=== PATIENT | female | born 1960 | race Caucasian/White ===

== ENCOUNTER 2018-12-10 13:45 | Emergency (ER) | payer MEDICAID ==
--- NOTE | 2018-12-10 14:28 | EDM.PDOC ---
ED HPI GENERAL MEDICAL PROBLEM - General Chief Complaint: Neurological Problem Stated Complaint: DIZZINESS/WEAKNESS - History of Present Illness INITIAL COMMENTS - FREE TEXT/NARRATIVE: Patient is a 58 year old female who appears older than stated age with past medical history positive for insulin dependent diabetes, cardiovascular disease with quadruple bypass, nephrectomy, hypothyroidism and Dizziness Sitting in a chair - started in legs, "wilted" ate a candy bar. Kept having to shake her awake. The appointment said that she had some shaking Patient has not had insulin in the past few weeks because she moved here 2 months ago and ran out of insulin. lantus Bypass 2017 Quad Nephrectomy Carotid enterectomy Hypothyroidism Acted similar to how she had her seizures - Related Data Allergies Allergy/AdvReac Type Severity Reaction Status Date / Time Influenza Virus Vaccines Allergy Cannot Verified 12/10/18 14:19 Remember morphine Allergy Cannot Verified 12/10/18 14:19 Remember pneumococcal vaccine Allergy Cannot Verified 12/10/18 14:19 [From Pneumovax 23] Remember pravastatin [From Pravachol] Allergy Cannot Verified 12/10/18 14:19 Remember tolterodine [From Detrol] Allergy Cannot Verified 12/10/18 14:19 Remember Home Meds: Home Meds Aspirin [Halfprin] 81 mg PO DAILY 12/10/18 [History] Azelastine/Fluticasone [Dymista Nasal [place]] 2 spray NS BID 12/10/18 [History] Budesonide/Formoterol Fumarate [Symbicort 80-4.5 MCG] 2 puff IH BID 12/10/18 [ History] Carvedilol [Coreg] 3.125 mg PO BID 12/10/18 [History] Cholecalciferol (Vitamin D3) [Vitamin D3] 1,000 unit PO DAILY 12/10/18 [History] Cpap 12/10/18 [History] Empagliflozin [Jardiance] 25 mg PO DAILY 12/10/18 [History] Escitalopram [Lexapro] 10 mg PO DAILY 12/10/18 [History] Fexofenadine [Sylvia] 180 mg PO DAILY 12/10/18 [History] Fluticasone Propionate [Flonase] 2 spray NS ASDIRECTED 12/10/18 [History] Furosemide [Lasix] 40 mg PO DAILY 12/10/18 [History] Gabapentin [Neurontin] 600 mg PO BID 12/10/18 [History] Insulin Glargine,Hum.Rec.Anlog [Lantus Solostar] 24 unit SQ QAM 12/10/18 [ History] Levothyroxine. 1 tab PO DAILY 12/10/18 [History] Losartan [Cozaar] 50 mg PO BID 12/10/18 [History] Lutein/Minerals/Vit A,C & E [Ocuvite] 1 tab PO DAILY 12/10/18 [History] Magnesium Oxide [Magnesium] 400 mg PO DAILY 12/10/18 [History] Mometasone/Formoterol [Dulera 100 Mcg/5 Mcg Inhaler] 2 puff IH DAILY 12/10/18 [ History] Omeprazole 20 mg PO QAM 12/10/18 [History] Polyethylene Glycol 3350 [Gavilax] 8.5 gm PO Q3D 12/10/18 [History] amLODIPine [Norvasc] 5 mg PO DAILY 12/10/18 [History] atorvaSTATin Calcium [Atorvastatin Calcium] 80 mg PO BEDTIME 12/10/18 [History] levETIRAcetam [Levetiracetam] 750 mg PO BID 12/10/18 [History] metFORMIN HCl [Metformin HCl] 1,000 mg PO BID 12/10/18 [History] Past Medical History HEENT History: Reports: Cataract, Impaired Vision Cardiovascular History: Reports: High Cholesterol, Hypertension Respiratory History: Reports: COPD, Intubation, Previous, Sleep Apnea Other Respiratory History: wears CPAP. USes 2l oxygen with naps and at bedtime Genitourinary History: Reports: Other (See Below) Other Genitourinary History: left kidney removed August 2018 TEXTILE EXAMINER History: Reports: Other (See Below) Other TEXTILE EXAMINER History: Hystertomy 2003. 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 Neurological History: Reports: Other (See Below) Other Neuro History: CVA 2017 Psychiatric History: Reports: Addiction, Anxiety, Depression Endocrine/Metabolic History: Reports: Diabetes, Type II, Hypothyroidism Oncologic (Cancer) History: Reports: Other (See Below) Other Oncologic History: skin cancer - Past Surgical History HEENT Surgical History: Reports: Eye Surgery Cardiovascular Surgical History: Reports: Coronary Artery Bypass, Other (See Below) Other Cardiovascular Surgeries/Procedures: 4 vessel 2016 GI Surgical History: Reports: Appendectomy Social & Family History - Tobacco Use Smoking Status *Q: Current Every Day Smoker Years of Tobacco use: 49 Packs/Tins Daily: 1 - Caffeine Use Caffeine Use: Reports: Soda, Tea - Recreational Drug Use Recreational Drug Use: No Course - Vital Signs Last Recorded V/S: Last Vital Signs Temp 97.9 F 12/10/18 14:01 Pulse 44 L 12/10/18 14:01 Resp 17 12/10/18 14:01 BP 107/52 L 12/10/18 14:01 Pulse Ox 95 12/10/18 14:01 - Orders/Labs/Meds Orders: Active Orders 24 hr Category Date Time Status Orthostatic Vital Signs [RC] ASDIRECTED Care 12/10/18 14:16 Active Chest 1V Frontal [CR] Stat Exams 12/10/18 14:29 Ordered CBC WITH AUTO DIFF [HEME] Stat Lab 12/10/18 14:29 Ordered CKMB [CHEM] Stat Lab 12/10/18 14:37 Ordered COMPREHENSIVE METABOLIC PN,CMP [CHEM] Stat Lab 12/10/18 14:29 Ordered CPK [CREATINE KINASE,CK] [CHEM] Stat Lab 12/10/18 14:37 Ordered GLYCOSYLATED HEMOGLOBIN,HGBA1C [CHEM] Stat Lab 12/10/18 14:31 Ordered INR,PT,PROTHROMBIN TIME [COAG] Stat Lab 12/10/18 14:29 Ordered KETONES,BLOOD [CHEM] Stat Lab 12/10/18 14:30 Ordered MAGNESIUM [CHEM] Stat Lab 12/10/18 14:29 Ordered OSMOLALITY,SERUM [CHEM] Stat Lab 12/10/18 14:29 Ordered PRO B-TYPE NATRIUR PEPT,BNPPRO [CHEM] Stat Lab 12/10/18 14:30 Ordered PTT,PARTIAL THROMBOPLSTIN TIME [COAG] Stat Lab 12/10/18 14:29 Ordered TROPONIN I [CHEM] Stat Lab 12/10/18 14:37 Ordered TSH [CHEM] Stat Lab 12/10/18 14:29 Ordered URINALYSIS W/MICROSCOPIC [UA W/MICROSCOPIC] [URIN] Stat Lab 12/10/18 14:30 Ordered Sodium Chloride 0.9% [Normal Saline] 1,000 ml Med 12/10/18 14:30 Active IV ASDIRECTED Sodium Chloride 0.9% [Normal Saline] 1,000 ml Med 12/10/18 14:30 Active IV ASDIRECTED Medication Orders Sodium Chloride (Normal Saline) 1,000 mls @ 999 mls/hr IV ASDIRECTED RAMSEY Sodium Chloride (Normal Saline) 1,000 mls @ 999 mls/hr IV ASDIRECTED RAMSEY Labs: Laboratory Tests 12/10/18 Range/Units 14:01 POC Glucose 254 H (70-105) mg/dL Meds: Medications Generic Name Dose Route Start Last Admin Trade Name Freq PRN Reason Stop Dose Admin Sodium Chloride 1,000 mls @ 999 mls/hr 12/10/18 14:30 Normal Saline IV ASDIRECTED RAMSEY Sodium Chloride 1,000 mls @ 999 mls/hr 12/10/18 14:30 Normal Saline IV ASDIRECTED RAMSEY Departure - Discharge Information Referrals: PCP,Not In Area [Primary Care Provider] - Forms: ED Department Discharge
[2018-12-10] MEDS ORDERED: Sodium Chloride 0.9% 1,000 ML IV SCH (14:30)
--- NOTE | 2018-12-10 14:35 | EDM.PDOC ---
<Nas Schaefer - Last Filed: 12/10/18 14:58> ED HPI GENERAL MEDICAL PROBLEM - General Chief Complaint: Neurological Problem Stated Complaint: DIZZINESS/WEAKNESS Time Seen by Provider: 12/10/18 14:28 Source of Information: Reports: Patient, Family History Limitations: Reports: No Limitations - History of Present Illness INITIAL COMMENTS - FREE TEXT/NARRATIVE: Patient is a 58 year old female with past medical history positive for insulin dependent diabetes, CABG, nephrectomy, hypothyroidism, CVA with residual left sided deficits and current smoker who presented today for "wilting." The patient is a poor historian, but is accompanied by her daughter and mother. The patient recently moved here from [place] and has been without insulin for a few weeks due to lack of insurance coverage. She does report that she is taking her blood pressure medication. Today, the patient complains of "wilting," which happened this morning while she was sitting in a chair. She states that the sensation began in her legs. The event was witnessed by family. She was offered a few bite of a candy bar, and the family reported that she "went in and out," and had to keep her awake. At the appointment they also noted that she had some shaking. The patient does have a history of seizures following her stroke, and the family is concerned today because they feel she is presenting similar to how she presented following her stroke. Onset: Today Onset Date: 12/10/18 Duration: Hour(s): - Related Data Allergies Allergy/AdvReac Type Severity Reaction Status Date / Time Influenza Virus Vaccines Allergy Cannot Verified 12/10/18 14:19 Remember morphine Allergy Cannot Verified 12/10/18 14:19 Remember pneumococcal vaccine Allergy Cannot Verified 12/10/18 14:19 [From Pneumovax 23] Remember pravastatin [From Pravachol] Allergy Cannot Verified 12/10/18 14:19 Remember tolterodine [From Detrol] Allergy Cannot Verified 12/10/18 14:19 Remember Home Meds: Home Meds Albuterol [Proventil Neb Soln] 0.63 mg NEB Q4HRRT PRN 12/10/18 [History] Aspirin [Halfprin] 81 mg PO DAILY 12/10/18 [History] Azelastine/Fluticasone [Dymista Nasal [place]] 2 spray NS BID 12/10/18 [History] Budesonide/Formoterol Fumarate [Symbicort 80-4.5 MCG] 2 puff IH BID 12/10/18 [ History] Carvedilol [Coreg] 3.125 mg PO BID 12/10/18 [History] Cholecalciferol (Vitamin D3) [Vitamin D3] 1,000 unit PO DAILY 12/10/18 [History] Empagliflozin [Jardiance] 25 mg PO DAILY 12/10/18 [History] Escitalopram [Lexapro] 10 mg PO DAILY 12/10/18 [History] Fexofenadine [Sylvia] 180 mg PO DAILY 12/10/18 [History] Fluticasone Propionate [Flonase] 2 spray NS ASDIRECTED 12/10/18 [History] Furosemide [Lasix] 40 mg PO DAILY 12/10/18 [History] Gabapentin [Neurontin] 600 mg PO BID 12/10/18 [History] Insulin Glarg,Human.Rec.Analog [Lantus Solostar] 24 units SUBCUT DAILY #1 pen [Rx] Insulin Glargine,Hum.Rec.Anlog [Lantus Solostar] 24 unit SQ QAM 12/10/18 [ History] Levothyroxine 200 mcg PO ACBREAKFAST #30 tab 12/10/18 [Rx] Levothyroxine. 1 tab PO DAILY 12/10/18 [History] Losartan [Cozaar] 50 mg PO BID 12/10/18 [History] Lutein/Minerals/Vit A,C & E [Ocuvite] 1 tab PO DAILY 12/10/18 [History] Magnesium Oxide [Magnesium] 400 mg PO DAILY 12/10/18 [History] Mometasone/Formoterol [Dulera 100 Mcg/5 Mcg Inhaler] 2 puff IH DAILY 12/10/18 [ History] Omeprazole 20 mg PO QAM 12/10/18 [History] Polyethylene Glycol 3350 [Gavilax] 8.5 gm PO Q3D 12/10/18 [History] amLODIPine [Norvasc] 5 mg PO DAILY 12/10/18 [History] atorvaSTATin Calcium [Atorvastatin Calcium] 80 mg PO BEDTIME 12/10/18 [History] levETIRAcetam [Levetiracetam] 750 mg PO BID 12/10/18 [History] metFORMIN HCl [Metformin HCl] 1,000 mg PO BID 12/10/18 [History] ED ROS GENERAL - Review of Systems Review Of Systems: See Below Constitutional: Reports: Fatigue, Weight Loss (Shrunk from a size large to a medium ) HEENT: Reports: Glasses, Other (Had vision changes with episode today) Respiratory: Reports: No Symptoms Cardiovascular: Reports: No Symptoms GI/Abdominal: Reports: No Symptoms : Denies: Dysuria, Frequency Musculoskeletal: Reports: No Symptoms Skin: Reports: No Symptoms, Dryness Neurological: Reports: Dizziness ED EXAM, NEURO - Physical Exam Exam: See Below General Appearance: Alert, WD/WN, No Apparent Distress Nose: Normal Inspection Throat/Mouth: Normal Inspection Neck: Normal Inspection Respiratory/Chest: No Respiratory Distress, No Accessory Muscle Use, Crackles ( Lower lung base) Cardiovascular: Normal Peripheral Pulses, Regular Rate, Rhythm, No Edema, No Murmur, No Rub GI/Abdominal: Normal Bowel Sounds, Soft, No Distention Neurological: Alert, Normal Mood/Affect Back Exam: Normal Inspection Extremities: Normal Inspection Psychiatric: Normal Affect, Normal Mood Skin Exam: Warm, Dry, Intact Course - Vital Signs Last Recorded V/S: Last Vital Signs Temp 36.6 C 12/10/18 14:01 Pulse 44 L 12/10/18 14:01 Resp 17 12/10/18 14:01 BP 111/55 L 12/10/18 16:08 Pulse Ox 95 12/10/18 14:01 Orthostatic Blood Pressure [ 82/66 Sitting] Orthostatic Blood Pressure [ 97/49 Supine] - Orders/Labs/Meds Orders: Active Orders 24 hr Category Date Time Status Orthostatic Vital Signs [RC] ASDIRECTED Care 12/10/18 14:16 Active Urinary Catheter Insertion [Insert Urinary Catheter] [ Care 12/10/18 15:45 Ordered OM.PC] Q24H Consult to Case Management/Securities Supervisor [CONS] Cons 12/10/18 16:30 Active Routine Sodium Chloride 0.9% [Normal Saline] 1,000 ml Med 12/10/18 14:30 Active IV ASDIRECTED Medication Orders Sodium Chloride (Normal Saline) 1,000 mls @ 999 mls/hr IV ASDIRECTED RAMSEY Last Admin: 12/10/18 14:58 Dose: 999 mls/hr Labs: Laboratory Tests 10/30/19 10/30/19 10/30/19 Range/Units 14:01 14:55 14:55 WBC 6.90 (3.98-10.04) K/mm3 RBC 5.67 H (3.98-5.22) M/mm3 Hgb 16.2 H (11.2-15.7) gm/dl Hct 48.3 H (34.1-44.9) % MCV 85.2 (79.4-94.8) fl MCH 28.6 (25.6-32.2) pg MCHC 33.5 (32.2-35.5) g/dl RDW Std Deviation 47.0 H (36.4-46.3) fL Plt Count 215 (182-369) K/mm3 MPV 11.0 (9.4-12.3) fl Neut % (Auto) 62.6 (34.0-71.1) % Lymph % (Auto) 24.3 (19.3-51.7) % [place] % (Auto) 8.3 (4.7-12.5) % Eos % (Auto) 4.2 (0.7-5.8) Baso % (Auto) 0.6 (0.1-1.2) % Neut # (Auto) 4.32 (1.56-6.13) K/mm3 Lymph # (Auto) 1.68 (1.18-3.74) K/mm3 [place] # (Auto) 0.57 H (0.24-0.36) K/mm3 Eos # (Auto) 0.29 (0.04-0.36) K/mm3 Baso # (Auto) 0.04 (0.01-0.08) K/mm3 PT 10.9 (9.7-12.0) SECONDS INR 1.00 APTT 22 (22-31) SECONDS Sodium (136-145) mEq/L Potassium (3.5-5.1) mEq/L Chloride (98-107) mEq/L Carbon Dioxide (21-32) mEq/L Anion Gap (5-15) BUN (7-18) mg/dL Creatinine (0.55-1.02) mg/dL Est Cr Clr Drug Dosing mL/min Estimated GFR (MDRD) (>60) mL/min BUN/Creatinine Ratio (14-18) Glucose (74-106) mg/dL POC Glucose 254 H (70-105) mg/dL Hemoglobin A1c (4.50-6.20) % Serum Osmolality (280-300) mosm/kg Calcium (8.5-10.1) mg/dL Magnesium (1.8-2.4) mg/dl Total Bilirubin (0.2-1.0) mg/dL AST (15-37) U/L ALT (14-59) U/L Alkaline Phosphatase (46-116) U/L Creatine Kinase (26-192) U/L CK-MB (CK-2) (0-3.6) ng/ml Troponin I (0.00-0.056) ng/mL NT-Pro-B Natriuret Pep (0-125) pg/mL Total Protein (6.4-8.2) g/dl Albumin (3.4-5.0) g/dl Globulin gm/dL Albumin/Globulin Ratio (1-2) TSH 3rd Generation (0.358-3.74) uIU/mL Urine Color (Yellow) Urine Appearance (Clear) Urine pH (5.0-8.0) Ur Specific [place] (1.005-1.030) Urine Protein (Negative) Urine Glucose (UA) (Negative) Urine Ketones (Negative) Urine Occult Blood (Negative) Urine Nitrite (Negative) Urine Bilirubin (Negative) Urine Urobilinogen (0.2-1.0) Ur Leukocyte Esterase (Negative) Urine RBC (0-5) /hpf Urine WBC (0-5) /hpf Ur Squamous Epith Cells (0-5) /hpf Urine Bacteria (FEW) /hpf Urine Mucus (FEW) /hpf Ketones (0.0-0.3) mM 12/10/18 12/10/18 12/10/18 Range/Units 14:55 14:55 14:55 WBC (3.98-10.04) K/mm3 RBC (3.98-5.22) M/mm3 Hgb (11.2-15.7) gm/dl Hct (34.1-44.9) % MCV (79.4-94.8) fl MCH (25.6-32.2) pg MCHC (32.2-35.5) g/dl RDW Std Deviation (36.4-46.3) fL Plt Count (182-369) K/mm3 MPV (9.4-12.3) fl Neut % (Auto) (34.0-71.1) % Lymph % (Auto) (19.3-51.7) % [place] % (Auto) (4.7-12.5) % Eos % (Auto) (0.7-5.8) Baso % (Auto) (0.1-1.2) % Neut # (Auto) (1.56-6.13) K/mm3 Lymph # (Auto) (1.18-3.74) K/mm3 [place] # (Auto) (0.24-0.36) K/mm3 Eos # (Auto) (0.04-0.36) K/mm3 Baso # (Auto) (0.01-0.08) K/mm3 PT (9.7-12.0) SECONDS INR APTT (22-31) SECONDS Sodium 142 (136-145) mEq/L Potassium 4.3 (3.5-5.1) mEq/L Chloride 101 (98-107) mEq/L Carbon Dioxide 30 (21-32) mEq/L Anion Gap 15.3 H (5-15) BUN 25 H (7-18) mg/dL Creatinine 1.3 H (0.55-1.02) mg/dL Est Cr Clr Drug Dosing 36.40 mL/min Estimated GFR (MDRD) 42 (>60) mL/min BUN/Creatinine Ratio 19.2 H (14-18) Glucose 189 H (74-106) mg/dL POC Glucose (70-105) mg/dL Hemoglobin A1c (4.50-6.20) % Serum Osmolality 312 H (280-300) mosm/kg Calcium 9.9 (8.5-10.1) mg/dL Magnesium 2.2 (1.8-2.4) mg/dl Total Bilirubin 0.7 (0.2-1.0) mg/dL AST 14 L (15-37) U/L ALT 31 (14-59) U/L Alkaline Phosphatase 116 (46-116) U/L Creatine Kinase (26-192) U/L CK-MB (CK-2) (0-3.6) ng/ml Troponin I (0.00-0.056) ng/mL NT-Pro-B Natriuret Pep 454 H (0-125) pg/mL Total Protein 8.1 (6.4-8.2) g/dl Albumin 4.6 (3.4-5.0) g/dl Globulin 3.5 gm/dL Albumin/Globulin Ratio 1.3 (1-2) TSH 3rd Generation 9.373 H (0.358-3.74) uIU/mL Urine Color (Yellow) Urine Appearance (Clear) Urine pH (5.0-8.0) Ur Specific [place] (1.005-1.030) Urine Protein (Negative) Urine Glucose (UA) (Negative) Urine Ketones (Negative) Urine Occult Blood (Negative) Urine Nitrite (Negative) Urine Bilirubin (Negative) Urine Urobilinogen (0.2-1.0) Ur Leukocyte Esterase (Negative) Urine RBC (0-5) /hpf Urine WBC (0-5) /hpf Ur Squamous Epith Cells (0-5) /hpf Urine Bacteria (FEW) /hpf Urine Mucus (FEW) /hpf Ketones 0.21 (0.0-0.3) mM 12/10/18 12/10/18 12/10/18 Range/Units 14:55 14:55 15:30 WBC (3.98-10.04) K/mm3 RBC (3.98-5.22) M/mm3 Hgb (11.2-15.7) gm/dl Hct (34.1-44.9) % MCV (79.4-94.8) fl MCH (25.6-32.2) pg MCHC (32.2-35.5) g/dl RDW Std Deviation (36.4-46.3) fL Plt Count (182-369) K/mm3 MPV (9.4-12.3) fl Neut % (Auto) (34.0-71.1) % Lymph % (Auto) (19.3-51.7) % [place] % (Auto) (4.7-12.5) % Eos % (Auto) (0.7-5.8) Baso % (Auto) (0.1-1.2) % Neut # (Auto) (1.56-6.13) K/mm3 Lymph # (Auto) (1.18-3.74) K/mm3 [place] # (Auto) (0.24-0.36) K/mm3 Eos # (Auto) (0.04-0.36) K/mm3 Baso # (Auto) (0.01-0.08) K/mm3 PT (9.7-12.0) SECONDS INR APTT (22-31) SECONDS Sodium (136-145) mEq/L Potassium (3.5-5.1) mEq/L Chloride (98-107) mEq/L Carbon Dioxide (21-32) mEq/L Anion Gap (5-15) BUN (7-18) mg/dL Creatinine (0.55-1.02) mg/dL Est Cr Clr Drug Dosing mL/min Estimated GFR (MDRD) (>60) mL/min BUN/Creatinine Ratio (14-18) Glucose (74-106) mg/dL POC Glucose (70-105) mg/dL Hemoglobin A1c 7.00 H (4.50-6.20) % Serum Osmolality (280-300) mosm/kg Calcium (8.5-10.1) mg/dL Magnesium (1.8-2.4) mg/dl Total Bilirubin (0.2-1.0) mg/dL AST (15-37) U/L ALT (14-59) U/L Alkaline Phosphatase (46-116) U/L Creatine Kinase 37 (26-192) U/L CK-MB (CK-2) 0.9 (0-3.6) ng/ml Troponin I < 0.017 (0.00-0.056) ng/mL NT-Pro-B Natriuret Pep (0-125) pg/mL Total Protein (6.4-8.2) g/dl Albumin (3.4-5.0) g/dl Globulin gm/dL Albumin/Globulin Ratio (1-2) TSH 3rd Generation (0.358-3.74) uIU/mL Urine Color Yellow (Yellow) Urine Appearance Clear (Clear) Urine pH 5.0 (5.0-8.0) Ur Specific [place] 1.010 (1.005-1.030) Urine Protein Negative (Negative) Urine Glucose (UA) 2+ H (Negative) Urine Ketones Negative (Negative) Urine Occult Blood Negative (Negative) Urine Nitrite Negative (Negative) Urine Bilirubin Negative (Negative) Urine Urobilinogen 0.2 (0.2-1.0) Ur Leukocyte Esterase Negative (Negative) Urine RBC 0-5 (0-5) /hpf Urine WBC 0-5 (0-5) /hpf Ur Squamous Epith Cells 0-5 (0-5) /hpf Urine Bacteria Few (FEW) /hpf Urine Mucus Few (FEW) /hpf Ketones (0.0-0.3) mM Meds: Medications Generic Name Dose Route Start Last Admin Trade Name Luiza PRN Reason Stop Dose Admin Sodium Chloride 1,000 mls @ 999 mls/hr 12/10/18 14:30 12/10/18 14:58 Normal Saline IV 999 mls/hr ASDIRECTED RAMSEY Administration Discontinued Medications Generic Name Dose Route Start Last Admin Trade Name Freq PRN Reason Stop Dose Admin Sodium Chloride 1,000 mls @ 999 mls/hr 12/10/18 14:30 Normal Saline IV ASDIRECTED RAMSEY Departure - Departure Disposition: Home, Self-Care 01 Clinical Impression: Hypothyroidism associated with surgical procedure, Mild congestive heart failure, Uncontrolled type 2 diabetes mellitus, Orthostatic hypotension, Dehydration, moderate - Discharge Information Prescriptions: Insulin Glarg,Human.Rec.Analog [Lantus Solostar] 24 units SUBCUT DAILY #1 pen Levothyroxine 200 mcg PO ACBREAKFAST #30 tab Referrals: PCP,Not In Area [Primary Care Provider] - Forms: ED Department Discharge Additional Instructions: Evaluation in the emergency room today in regards to fainting or syncopal event that occurred while seated earlier today. His occurred because heart rate is very low which is secondary to some of your medications and also due to being hypothyroid. Your blood pressure dropped while seated today which caused lack of blood supply to your brain and you to pass out with some seizure-like activity which we call reperfusion abnormalities. By history alone it does not appear that you suffered any seizure. Her blood pressure upon arrival in the ED was found to be extremely low. By with your low heart rate cause you to pass out today. The reason for the low blood pressure secondary to orthostatic hypotension which is due to low blood volume due to being dehydrated from not taking her insulin for the last 2 weeks. This is caused her blood sugars to be elevated which in turn caused her to become volume depleted or moderately dehydrated. No treatment was a liter of normal saline which returned her blood pressure to normal values with very little change upon standing. Suggest placing your Norvasc /amlodipine on hold for 2 days to allow your blood pressure to come back up. The other thing we identified in your lab work was hypothyroidism with your TSH value at 9.37. It should be to when you are on medication. Therefore IV increase her medication dosage 2.00 mg of levothyroxine replacement once daily. This will have to be checked in 6-8 weeks time to make sure that you are on the correct dosage. Hypothyroidism has an effect on lowering your heart rate and weakening your heart. Continue all other medications as prescribed. - My Orders Last 24 Hours: My Active Orders 12/10/18 14:16 Orthostatic Vital Signs [RC] ASDIRECTED 12/10/18 14:30 Sodium Chloride 0.9% [Normal Saline] 1,000 ml IV ASDIRECTED 12/10/18 15:45 Urinary Catheter Insertion [Insert Urinary Catheter] [OM.PC] Q24H 12/10/18 16:30 Consult to Case Management/Securities Supervisor [CONS] Routine - Assessment/Plan Last 24 Hours: My Active Orders 12/10/18 14:16 Orthostatic Vital Signs [RC] ASDIRECTED 12/10/18 14:30 Sodium Chloride 0.9% [Normal Saline] 1,000 ml IV ASDIRECTED 12/10/18 15:45 Urinary Catheter Insertion [Insert Urinary Catheter] [OM.PC] Q24H 12/10/18 16:30 Consult to Case Management/Securities Supervisor [CONS] Routine <Hernandez Ortez - Last Filed: 12/10/18 18:04> ED HPI GENERAL MEDICAL PROBLEM - General Source of Information: Reports: Patient History Limitations: Reports: No Limitations - History of Present Illness INITIAL COMMENTS - FREE TEXT/NARRATIVE: Patient is a 58 year old female who appears older than stated age with past medical history positive for insulin dependent diabetes, cardiovascular disease with quadruple bypass, nephrectomy, hypothyroidism and Dizziness Sitting in a chair - started in legs, "wilted" ate a candy bar. Kept having to shake her awake. The appointment said that she had some shaking Patient has not had insulin in the past few weeks because she moved here 2 months ago and ran out of insulin. lantus Bypass 2017 Quad Nephrectomy Carotid enterectomy Hypothyroidism Acted similar to how she had her seizures Duration: Day(s): Quality: Reports: Other Severity: Moderate (Generalized weakness) Improves with: Reports: Rest Worsens with: Reports: Other (Worse with standing or walking.) Context: Reports: Other (Spontaneous symptom development over the last several weeks. She is attended 12 pound weight loss in that time frame.). Denies: Activity, Exercise, Lifting, Sick Contact, Trauma Associated Symptoms: Reports: Confusion (Seemed confused apparently today almost like she was suffering a seizure according to her), Cough, cough w sputum (Cardiac cough from cigarette smoking. Patient still smoking a pack per day.), Malaise, Shortness of Breath, Weakness. Denies: Chest Pain ( daughter.) , Diaphoresis, Fever/Chills, Headaches, Loss of Appetite, Nausea/Vomiting, Rash , Seizure, Syncope Treatments SUPERVISOR FITTING: Reports: Other (see below) (Generalized none.) Past Medical History HEENT History: Reports: Cataract, Impaired Vision Cardiovascular History: Reports: Bypass (Vision had triple coronary bypass performed in 2017. Surgery was complicated by cardiac arrest and resuscitation 4 during the surgery. As a result she suffered a stroke with left hemiparesis symptoms that took 6 months to a year to recover from. She still has some troubles swallowing and chokes easily and her voice is a very strong at times.) , CAD, Heart Failure, High Cholesterol, Hypertension Respiratory History: Reports: Bronchitis, Recurrent, COPD (With reversible component. Still smoking 1 pack of cigarettes daily.), Intubation, Previous, Sleep Apnea Other Respiratory History: wears CPAP. USes 2l oxygen with naps and at bedtime Genitourinary History: Reports: Other (See Below) Other Genitourinary History: left kidney removed August 2018 A P MECHANIC History: Reports: Other (See Below) Other A P MECHANIC History: Hystertomy 2003. 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 Neurological History: Reports: Other (See Below) Other Neuro History: CVA 2017 Psychiatric History: Reports: Addiction, Anxiety, Depression Endocrine/Metabolic History: Reports: Diabetes, Type II (Patient has been diabetic for an estimated 20 years. She couldn't remember how long she's been on insulin for treatment but has been totally off her Lantus once daily for the last 2 weeks because of financial constraint.), Hypothyroidism Oncologic (Cancer) History: Reports: Other (See Below) Other Oncologic History: skin cancer - Past Surgical History HEENT Surgical History: Reports: Eye Surgery Cardiovascular Surgical History: Reports: Coronary Artery Bypass, Other (See Below) Other Cardiovascular Surgeries/Procedures: 4 vessel 2016 GI Surgical History: Reports: Appendectomy Social & Family History - Tobacco Use Smoking Status *Q: Current Every Day Smoker Years of Tobacco use: 49 Packs/Tins Daily: 1 - Caffeine Use Caffeine Use: Reports: Soda, Tea - Recreational Drug Use Recreational Drug Use: No - Living Situation & Occupation Living situation: Reports: Single (Recently moved to [place] from [facility] Occupation: Disabled ED ROS GENERAL - Review of Systems Constitutional: Reports: Weakness, Other (She reports her appetite is been good. ). Denies: Decreased Appetite Respiratory: Reports: Shortness of Breath (On exertion) Cardiovascular: Reports: Blood Pressure Problem (Has been running low as of late.), Dyspnea on Exertion, Lightheadedness. Denies: Chest Pain, Claudication , Edema, Orthopnea Endocrine: Reports: Fatigue, High Glucose (She's not been checking her sugars as of late pressure here was 254. Note she had to buy some candy bar before made to the ER.) GI/Abdominal: Reports: Difficulty Swallowing (Sometimes). Denies: Constipation , Diarrhea, Decreased Appetite, Distension, Flatus, Hematemesis, Hematochezia, Melena, Stool Incontinence : Reports: Frequency Musculoskeletal: Reports: Other (Chronic left hemiparesis post CVA. Walks with a gait aid) Neurological: Reports: Difficulty Walking (Since stroke in 2017. Cardiac bypass surgery.) Psychiatric: Reports: No Symptoms Hematologic/Lymphatic: Reports: No Symptoms Immunologic: Reports: No Symptoms ED EXAM, NEURO - Physical Exam General Appearance: Other (Temperatures recorded at 36.6 which is low. Bradycardia with reported heart rate of 44/m. Respiratory to 17 with sats of 95 % on room air. BP 107/52. He is orthostatic. When she settled into bed her systolic pressure was 97. When she sat up from the lying position her systolic pressure dropped to 82. This confirms clinical suspicion of orthostatic hypotension.) Eye Exam: Bilateral Eye: Normal Inspection, PERRL Throat/Mouth: Normal Inspection, Other (Tongue is very dry and coated.) Head Exam: Atraumatic, Normocephalic Neurological: Difficulty Walking (She does have a left sided hemiparesis.) EKG INTERPRETATION EKG Date: 12/10/18 Time: 13:56 Rhythm: Other (Sinus bradycardia) Rate (Beats/Min): 47 [place]: LAD-Left [place] Deviation (Left axis deviation of -49) P-Wave: Present QRS: Other (Q waves V1 to an 3 and near Q-wave in V4 compare with a large anteroseptal myocardial infarction.) ST-T: Other (T-wave inversion one in aVL and leads V4 to V6. Cannot rule out ischemia. T-wave flattening appreciated in leads 1 and V3. There is also T-wave inversion in V2.) QT: Prolonged (QT interval is mildly prolonged.) EKG Interpretation Comments: Abnormal ECG Course - Radiology Interpretation Free Text/Narrative:: 58-year-old female presents to the ED with 2 of her daughters. Apparently they went to the medical insurance office today and while seated in the chair patient started to feel generalized weakness and perhaps quivering of her musculature in her lower extremities that seemed to creep up her body's it sound like she passed out for a short period of time while seated. Some suggestion that she experienced seizure-like activity which well could've occurred his father's a reemergence phenomenon as part of severe low blood pressure. She is strongly orthostatic here. The history suggests she's been without her Lantus insulin for the better part of 2 weeks due to lack of finances to purchase it. She is normally on 24 units subcutaneous once daily every morning. She does not take any insulin with any meals. She is apparently still on her Jardiance and metformin. Note the patient had her left kidney removed in July of this year due to it not functioning and perhaps contributing to hypertension. Therefore she clinically has been hyperglycemic for over 2 weeks with an associated 1012 pound weight loss. She is still taking antihypertensive medications as well including Norvasc 5 mg daily, losartan 100 mg daily., Lasix 40 mg once daily, Labetalol 3.125 mg twice a day. These are all contributing to hypotension. Clinically she appears volume depleted with very dry tongue. Plan : IV normal saline 1 L IV. Routine labs including serum magnesium and BNP and cardiac markers. Her ECG is strongly positive for an old anteroseptal myocardial infarction with Q waves from V1 to V4. There is T-wave inversion V5 V6 and one in aVL. She has a sinus bradycardia at 47/m which is also contributing to her hypotension and inability of heart rate to increase due to being Carvedilol. - Re-Assessments/Exams Free Text/Narrative Re-Assessment/Exam: 12/10/18 15:38 chest x-ray reveals mildly hyperinflated lung vieira. Cardio silhouette is upper limits of normal. There is evidence of previous midline sternotomy with wires in appropriate position. There are multiple an along the left cardiac border upper tip is easily the left atrium and left ventricle due to open heart surgery and triple bypass. Lungs appear clear at this point time with no pulmonary infiltrates or signs of pulmonary vascular congestion. 12/10/18 15:41 Labs reveal a white count of 6.90. Auto differential shows 62.6% neutrophils. Hemoglobin is 16.2 with hematocrit of 48.3 indicating some degree of hemoconcentration. PERRLA count is 215,000. PT is 10.9 with an INR 1.0. PTT is 22. Sodium 142 with a potassium of 4.3. Chloride is 11 with a bicarbonate of 30. Anion gap is 15.3. BUN is 25 with a creatinine of 1.3. GFR is 42 i.e. stage III chronic kidney disease. Note she only has her right kidney. Glucose in the lab is 189 was 254 at the bedside. Serum osmolalities pending. Calcium is 9.9 with a magnesium of 2.2. Liver function is normal. CPK total is 37. CK-MB fraction is pending troponin I is less than 0.017. Total protein is 8.1 with an albumin fraction of 4.6 again suggesting hemoconcentration. TSH is elevated at 9.373 patient is hypothyroid by history but obviously is not taking adequate dose or is noncompliant. 12/10/18 16:45 Urinalysis reveals 2+ glucosuria but no signs of infection. Serum ketones are 0.21. Serum osmolality is 312 slightly elevated. The BNP is still not available as there was a prominent the lab with the analyzer going down. Apparently it is working now and more hopeful to have an result within the hour. 12/10/18 17:52 BNP is minimally elevated at 454. Repeat orthostatic blood pressures done after liter fluid reveal standing blood pressure be 63. Sitting was 115/61 and lying was 126/61. Therefore she remains very minimally orthostatic. Therefore going to let her go home with plan to return to insulin Lantus 24 units subcutaneously daily. I'm going to increase her current levothyroxine from 0.175 mg daily 2.0 mg daily. This may not still be a big enough increase in dosage but I am not sure of patient's compliance with medication and therefore will go easy for now. She is going to follow-up with one of the local internists in regards to continued care. She will need thyroid function studies done in 6-8 weeks time. Departure - Departure Time of Disposition: 17:53 Condition: Fair - Discharge Information *PRESCRIPTION DRUG MONITORING PROGRAM REVIEWED*: Not Applicable *COPY OF PRESCRIPTION DRUG MONITORING REPORT IN PATIENT ANCELMO: Not Applicable
[2018-12-10] MEDS: Sodium Chloride 0.9% 1,000 ML IV SCH (14:58)
--- NOTE | 2018-12-10 15:25 | CR ---
Chest: Portable view of the chest was obtained. Comparison: No previous chest x-ray. Heart size and mediastinum are within normal limits for the patient's age. Sternotomy and change from CABG is seen. Lungs are clear with no acute parenchymal change. Bony structures are grossly intact. Impression: 1. No acute intrathoracic process is seen. Diagnostic code #2
== END 2018-12-10 18:18 | disposition home or self-care (01) ==
LOC: JD.ED 13:45
DX: I95.1 Orthostatic hypotension (principal); E86.0 Dehydration; E89.0 Postprocedural hypothyroidism; E11.65 Type 2 diabetes mellitus with hyperglycemia; I11.0 Hypertensive heart disease with heart failure; I50.9 Heart failure, unspecified; J44.9 Chronic obstructive pulmonary disease, unspecified; F17.210 Nicotine dependence, cigarettes, uncomplicated; F41.9 Anxiety disorder, unspecified; F32.9 Major depressive disorder, single episode, unspecified; Z95.1 Presence of aortocoronary bypass graft; Z86.73 Personal history of transient ischemic attack (TIA), and cerebral infarction without residual deficits; Z79.4 Long term (current) use of insulin; Z79.899 Other long term (current) drug therapy; Z88.7 Allergy status to serum and vaccine; Z88.5 Allergy status to narcotic agent; Z88.8 Allergy status to other drugs, medicaments and biological substances; Z79.82 Long term (current) use of aspirin; Z90.5 Acquired absence of kidney
CPT/HCPCS: 36415; 51701; 71045; 80053; 81001; 82009; 82550; 82553; 82962; 83036; 83735; 83880; 83930; 84443; 84484; 85025; 85610; 85730; 96360; 99284; J7040; 93010

== ENCOUNTER 2019-08-24 18:33 | Emergency (ER) | payer MEDICARE, MEDICAID ==
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
--- NOTE | 2019-08-24 20:52 | CR ---
Right knee: 4 views of the right knee were obtained. Comparison: No previous knee study. No joint effusion is seen. Distal femur appears somewhat medial subluxed suggesting soft tissue laxity or injury. Mild vascular calcification is noted. No acute fracture or other abnormality is appreciated. Impression: 1. Slightly subluxed femur in relation to the tibia in a medial direction. Findings suggest the possibility soft tissue laxity or injury. 2. No acute bony abnormality is appreciated. 3. Other findings believed to be incidental as noted above. Diagnostic code #3 This report was dictated in MDT
== END 2019-08-24 19:43 | disposition home or self-care (01) ==
LOC: JD.ED 18:33
DX: S80.01XA Contusion of right knee, initial encounter (principal); I11.0 Hypertensive heart disease with heart failure; I50.9 Heart failure, unspecified; E78.00 Pure hypercholesterolemia, unspecified; I25.10 Atherosclerotic heart disease of native coronary artery without angina pectoris; J44.9 Chronic obstructive pulmonary disease, unspecified; F41.9 Anxiety disorder, unspecified; F32.9 Major depressive disorder, single episode, unspecified; E11.9 Type 2 diabetes mellitus without complications; E03.9 Hypothyroidism, unspecified; E66.9 Obesity, unspecified; Z68.28 Body mass index [BMI] 28.0-28.9, adult; F17.210 Nicotine dependence, cigarettes, uncomplicated; Z95.1 Presence of aortocoronary bypass graft; Z88.8 Allergy status to other drugs, medicaments and biological substances; Z88.7 Allergy status to serum and vaccine; Z88.5 Allergy status to narcotic agent; Z91.018 Allergy to other foods; Z79.82 Long term (current) use of aspirin; Z79.4 Long term (current) use of insulin; Z79.899 Other long term (current) drug therapy; V59.50XA Passenger in pick-up truck or van injured in collision with unspecified motor vehicles in traffic accident, initial encounter
CPT/HCPCS: 73564-26-RT; 73564-RT; 99282; 99284-25

== ENCOUNTER 2020-06-25 09:08 | Emergency (ER) | payer MEDICARE, MEDICAID ==
[2020-06-25] MEDS ORDERED: Sodium Chloride 0.9% 10 ML Syringe FLUSH PRN (09:56)
[2020-06-25] MEDS ORDERED: Sodium Chloride 0.9% 1,000 ML IV SCH (10:00)
--- NOTE | 2020-06-25 11:52 | EDM.PDOC ---
ED HPI GENERAL MEDICAL PROBLEM - General Chief Complaint: Syncope Stated Complaint: SYNCOPE EPISODE LAST NIGHT Time Seen by Provider: 06/25/20 09:30 Source of Information: Reports: Patient History Limitations: Reports: No Limitations - History of Present Illness INITIAL COMMENTS - FREE TEXT/NARRATIVE: The patient presents with a headache. She said she passed out last night. She was watching a movie with a friend. She went back home around midnight and was sitting at the kitchen table and playing a game. She then fell and hit her head on the base of a fan. She may have been out for a short time. Her friend came over to check on her and she was confused for about 15 minutes. She then felt better and went to bed. She woke up with a headache to the right parietal re gion. She has no fever, chills, cough, chest pain, shortness of breath, abdominal pain, nausea or vomiting. She has numbness to her left side from a prior CVA after a CABG. Onset: Sudden Duration: Hour(s): (about midnight last night) Location: Reports: Head Quality: Reports: Ache Severity: Moderate Improves with: Reports: None Worsens with: Reports: None Associated Symptoms: Reports: Headaches. Denies: Chest Pain, Cough, Fever/Chills, Nausea/Vomiting, Shortness of Breath Headache Pain Score (Numeric/FACES): 5 - Related Data Allergies Allergy/AdvReac Type Severity Reaction Status Date / Time dulaglutide [From Trulicity] Allergy Severe Vomiting Verified 06/25/20 09:29 Influenza Virus Vaccines Allergy Severe Cannot Verified 06/25/20 09:29 Remember morphine Allergy Severe Cannot Verified 06/25/20 09:29 Remember pneumococcal vaccine Allergy Severe Cannot Verified 06/25/20 09:29 [From Pneumovax 23] Remember pravastatin [From Pravachol] Allergy Severe Cannot Verified 06/25/20 09:29 Remember tolterodine [From Detrol] Allergy Severe Cannot Verified 06/25/20 09:29 Remember artificial vanilla Allergy Severe Anxiety Uncoded 06/25/20 09:29 Home Meds: Home Meds Albuterol [Proventil Neb Soln] 0.63 mg NEB Q4HRRT PRN 12/10/18 [History] Aspirin [Halfprin] 81 mg PO DAILY 12/10/18 [History] Azelastine/Fluticasone [Dymista Nasal [place]] 2 spray NS BID 12/10/18 [History] Budesonide/Formoterol Fumarate [Symbicort 80-4.5 MCG] 2 puff IH BID 12/10/18 [H istory] Cholecalciferol (Vitamin D3) [Vitamin D3] 1,000 unit PO DAILY 12/10/18 [History] Empagliflozin [Jardiance] 25 mg PO DAILY 12/10/18 [History] Escitalopram [Lexapro] 10 mg PO DAILY 12/10/18 [History] Fexofenadine [Sylvia] 180 mg PO DAILY 12/10/18 [History] Fluticasone Propionate [Flonase] 2 spray NS ASDIRECTED 12/10/18 [History] Furosemide [Lasix] 40 mg PO DAILY 12/10/18 [History] Gabapentin [Neurontin] 600 mg PO BID 12/10/18 [History] Insulin Glarg,Human.Rec.Analog [Lantus Solostar] 24 units SUBCUT DAILY #1 pen 12/10/18 [Rx] Insulin Glargine,Hum.Rec.Anlog [Lantus Solostar] 24 unit SQ QAM 12/10/18 [History] Levothyroxine 200 mcg PO ACBREAKFAST #30 tab 12/10/18 [Rx] Levothyroxine. 1 tab PO DAILY 12/10/18 [History] Losartan [Cozaar] 50 mg PO BID 12/10/18 [History] Lutein/Minerals/Vit A,C & E [Ocuvite] 1 tab PO DAILY 12/10/18 [History] Magnesium Oxide [Magnesium] 400 mg PO DAILY 12/10/18 [History] Mometasone/Formoterol [Dulera 100 Mcg/5 Mcg Inhaler] 2 puff IH DAILY 12/10/18 [History] Omeprazole 20 mg PO QAM 12/10/18 [History] amLODIPine [Norvasc] 5 mg PO DAILY 12/10/18 [History] atorvaSTATin Calcium [Atorvastatin Calcium] 80 mg PO BEDTIME 12/10/18 [History] carvediloL [Coreg] 3.125 mg PO BID 12/10/18 [History] levETIRAcetam [Levetiracetam] 750 mg PO BID 12/10/18 [History] metFORMIN HCl [Metformin HCl] 1,000 mg PO BID 12/10/18 [History] polyethylene glycoL 3350 [Gavilax] 8.5 gm PO Q3D 12/10/18 [History] Past Medical History HEENT History: Reports: Cataract, Impaired Vision Cardiovascular History: Reports: Bypass, CAD, Heart Failure, High Cholesterol, Hypertension Respiratory History: Reports: Bronchitis, Recurrent, COPD, Intubation, Previous, Sleep Apnea Other Respiratory History: wears CPAP. 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 Neurological History: Reports: Other (See Below) Other Neuro History: CVA 2016 Psychiatric History: Reports: Addiction, Anxiety, Depression Endocrine/Metabolic History: Reports: Diabetes, Type II, Hypothyroidism Oncologic (Cancer) History: Reports: Other (See Below) Other Oncologic History: skin cancer - Past Surgical History HEENT Surgical History: Reports: Eye Surgery Cardiovascular Surgical History: Reports: Coronary Artery Bypass, Other (See Below) Other Cardiovascular Surgeries/Procedures: 4 vessel 2016 GI Surgical History: Reports: Appendectomy Social & Family History - Tobacco Use Tobacco Use Status *Q: Current Every Day Tobacco User Years of Tobacco use: 45 Packs/Tins Daily: 1 - Caffeine Use Caffeine Use: Reports: None - Recreational Drug Use Recreational Drug Use: No - Living Situation & Occupation Living situation: Reports: Single (Recently moved to [place] from [facility].) Occupation: Disabled ED ROS GENERAL - Review of Systems Review Of Systems: See Below Constitutional: Reports: No Symptoms HEENT: Reports: No Symptoms Respiratory: Reports: No Symptoms Cardiovascular: Reports: No Symptoms Endocrine: Reports: No Symptoms GI/Abdominal: Reports: No Symptoms : Reports: No Symptoms Neurological: Reports: Headache - Physical Exam Exam: See Below Exam Limited By: No Limitations General Appearance: Alert, No Apparent Distress Ears: Normal External Exam Nose: Normal Inspection Head Exam: Other (pain upon palpation and edema to the right parietal region) Neck: Normal Inspection, Supple, Non-Tender Respiratory/Chest: No Respiratory Distress, Lungs Clear, Normal Breath Sounds Cardiovascular: Regular Rate, Rhythm, No Edema, No Murmur GI/Abdominal: Soft, Non-Tender, No Organomegaly, No Mass Neuro Exam (Abbreviated): Alert, Oriented, No Motor/Sensory Deficits Extremities: Normal Inspection #1 Interpretation EKG Date: 06/25/20 Time: 10:06 Rhythm: Other (sinus bradycardia) Rate (Beats/Min): 54 Arthur: Normal P-Wave: Present QRS: Normal ST-T: Normal QT: Normal EKG Interpretation Comments: Q waves in the anterior leads Course - Vital Signs Last Recorded V/S: Last Vital Signs Temp 96.9 F 06/25/20 09:26 Pulse 71 06/25/20 11:16 Resp 16 06/25/20 11:16 BP 104/53 L 06/25/20 11:16 Pulse Ox 90 L 06/25/20 11:16 - Orders/Labs/Meds Orders: Active Orders 24 hr Category Date Time Status Cardiac Monitoring [RC] . DIRECTED Care 06/25/20 09:56 Active EKG Documentation Completion [RC] STAT Care 06/25/20 09:57 Active Holter Monitor 48 Hours [RC] .PRN Care 06/25/20 11:58 Active Peripheral IV Care [RC] . DIRECTED Care 06/25/20 09:57 Active Head wo Cont [CT] Stat Exams 06/25/20 09:57 Taken Sodium Chloride 0.9% [Normal Saline] 1,000 ml Med 06/25/20 10:00 Active IV .BOLUS Sodium Chloride 0.9% [Saline Flush] Med 06/25/20 09:56 Active 10 ml FLUSH ASDIRECTED PRN Peripheral IV Insertion Adult [OM.PC] Stat Oth 06/25/20 09:56 Ordered Medication Orders Sodium Chloride (Normal Saline) 1,000 mls @ 1,000 mls/hr IV .BOLUS RAMSEY Last Admin: 06/25/20 10:06 Dose: 1,000 mls/hr Documented by: LAST Sodium Chloride (Sodium Chloride 0.9% 10 Ml Syringe) 10 ml FLUSH ASDIRECTED PRN PRN Reason: Keep Vein Open Last Admin: 06/25/20 10:03 Dose: 10 ml Documented by: LAST Labs: Laboratory Tests 06/25/20 06/25/20 Range/Units 10:03 10:03 WBC 6.88 (3.98-10.04) K/mm3 RBC 4.97 (3.98-5.22) M/mm3 Hgb 15.1 (11.2-15.7) gm/dl Hct 43.9 (34.1-44.9) % MCV 88.3 D (79.4-94.8) fl MCH 30.4 (25.6-32.2) pg MCHC 34.4 (32.2-35.5) g/dl RDW Std Deviation 45.9 (36.4-46.3) fL Plt Count 181 L (182-369) K/mm3 MPV 10.9 (9.4-12.3) fl Neut % (Auto) 66.9 (34.0-71.1) % Lymph % (Auto) 21.2 (19.3-51.7) % [place] % (Auto) 10.2 (4.7-12.5) % Eos % (Auto) 1.2 (0.7-5.8) Baso % (Auto) 0.4 (0.1-1.2) % Neut # (Auto) 4.60 (1.56-6.13) K/mm3 Lymph # (Auto) 1.46 (1.18-3.74) K/mm3 [place] # (Auto) 0.70 H (0.24-0.36) K/mm3 Eos # (Auto) 0.08 (0.04-0.36) K/mm3 Baso # (Auto) 0.03 (0.01-0.08) K/mm3 Sodium 144 (136-145) mEq/L Potassium 3.7 (3.5-5.1) mEq/L Chloride 104 (98-107) mEq/L Carbon Dioxide 27 (21-32) mEq/L Anion Gap 16.7 H (5-15) BUN 33 H (7-18) mg/dL Creatinine 1.3 H (0.55-1.02) mg/dL Est Cr Clr Drug Dosing 35.49 mL/min Estimated GFR (MDRD) 42 (>60) mL/min BUN/Creatinine Ratio 25.4 H (14-18) Glucose 164 H (70-99) mg/dL Calcium 8.7 (8.5-10.1) mg/dL Magnesium 1.7 L (1.8-2.4) mg/dL Total Bilirubin 0.5 (0.2-1.0) mg/dL AST 14 L (15-37) U/L ALT 27 (14-59) U/L Alkaline Phosphatase 79 (46-116) U/L Troponin I < 0.017 (0.00-0.056) ng/mL Total Protein 7.0 (6.4-8.2) g/dl Albumin 4.0 (3.4-5.0) g/dl Globulin 3.0 gm/dL Albumin/Globulin Ratio 1.3 (1-2) Meds: Medications Generic Name Dose Route Start Last Admin Trade Name Freq PRN Reason Stop Dose Admin Sodium Chloride 1,000 mls @ 1,000 mls/hr 06/25/20 10:00 06/25/20 10:06 Normal Saline IV 1,000 mls/hr .BOLUS RAMSEY Administration Sodium Chloride 10 ml 06/25/20 09:56 06/25/20 10:03 Sodium Chloride 0.9% 10 Ml Syringe FLUSH 10 ml ASDIRECTED PRN Administration Keep Vein Open - Re-Assessments/Exams Free Text/Narrative Re-Assessment/Exam: 06/25/20 11:52 I ordered an IV NS 1L bolus, EKG, CT of her head, and labs. Her EKG shows a sinus bradycardia with no acute changes. The CT of her head shows sequela prior right frontotemporal infarct. No acute intracranial injury identified. Right frontal scalp hematoma without underlying fracture or foreign body. Her CBC looks good. Her creatinine was a little elevated at 1.3. Her glucose is elevated at 164. Her magnesium is a little low at 1.7. Her troponin is negative. I am not sure what caused this. I will get her on a holter monitor and have her follow up with her doctor. Departure - Departure Time of Disposition: 12:00 Disposition: Home, Self-Care 01 Condition: Good Clinical Impression: Syncope Qualifiers: Syncope type: unspecified Qualified Code(s): R55 - Syncope and collapse Head injury Qualifiers: Encounter type: initial encounter Qualified Code(s): S09.90XA - Unspecified injury of head, initial encounter - Discharge Information *PRESCRIPTION DRUG MONITORING PROGRAM REVIEWED*: Not Applicable *COPY OF PRESCRIPTION DRUG MONITORING REPORT IN PATIENT ANCELMO: Not Applicable Referrals: Rolan Haro MD [Primary Care Provider] - 1 Week Forms: ED Department Discharge Additional Instructions: Ice your head for 15 minutes 3 times per day for 2 days. Take tylenol or motrin for pain. Please return if you are worse. Wear the holter monitor for 48 hours. Follow up with Dr Haro. Sepsis Event Note (ED) - Evaluation Sepsis Screening Result: No Definite Risk - Focused Exam Vital Signs: Vital Signs Temp Pulse Resp BP Pulse Ox 06/25/20 11:16 71 16 104/53 L 90 L 06/25/20 09:26 96.9 F 61 16 108/64 95 - My Orders Last 24 Hours: My Active Orders 06/25/20 09:56 Cardiac Monitoring [RC] . DIRECTED Sodium Chloride 0.9% [Saline Flush] 10 ml FLUSH ASDIRECTED PRN Peripheral IV Insertion Adult [OM.PC] Stat 06/25/20 09:57 EKG Documentation Completion [RC] STAT Peripheral IV Care [RC] . DIRECTED Head wo Cont [CT] Stat 06/25/20 10:00 Sodium Chloride 0.9% [Normal Saline] 1,000 ml IV .BOLUS 06/25/20 11:58 Holter Monitor 48 Hours [RC] .PRN - Assessment/Plan Last 24 Hours: My Active Orders 06/25/20 09:56 Cardiac Monitoring [RC] . DIRECTED Sodium Chloride 0.9% [Saline Flush] 10 ml FLUSH ASDIRECTED PRN Peripheral IV Insertion Adult [OM.PC] Stat 06/25/20 09:57 EKG Documentation Completion [RC] STAT Peripheral IV Care [RC] . DIRECTED Head wo Cont [CT] Stat 06/25/20 10:00 Sodium Chloride 0.9% [Normal Saline] 1,000 ml IV .BOLUS 06/25/20 11:58 Holter Monitor 48 Hours [RC] .PRN
--- NOTE | 2020-06-27 11:15 | CT ---
Head CT Technique: Multiple axial sections through the brain were obtained. Intravenous contrast was not utilized. Reconstructed coronal and sagittal images were obtained. Comparison: No previous intracranial imaging is available. Findings: Low density is noted within a portion of the right middle cerebral artery compatible with old infarct. Ventricles along with basal cisterns and sulci over the convexities are slightly prominent. Mild diminished density is noted within the periventricular white matter which is compatible with small vessel ischemic demyelination change. No evidence of intracranial hemorrhage. No midline shift or mass-effect is appreciated. Minimal hematoma is seen within the right frontal scalp. Bone window settings were reviewed. No acute calvarial abnormality is seen. Visualized paranasal sinuses and mastoid sinuses show nothing acute. Atherosclerotic calcification is noted within the carotid siphon. Impression: 1. Old infarct within the distribution of the right middle cerebral artery. 2. Other senescent change as noted above. 3. Nothing acute is appreciated. Diagnostic code #2 I agree with preliminary report from [facility], finalized on 06/25/20, 12:10 PM CDT, code 1
== END 2020-06-25 12:20 | disposition home or self-care (01) ==
LOC: JD.ED 09:08
DX: R55 Syncope and collapse (principal); S09.90XA Unspecified injury of head, initial encounter; I25.10 Atherosclerotic heart disease of native coronary artery without angina pectoris; I11.0 Hypertensive heart disease with heart failure; I50.9 Heart failure, unspecified; E11.9 Type 2 diabetes mellitus without complications; E03.9 Hypothyroidism, unspecified; E78.00 Pure hypercholesterolemia, unspecified; Z88.8 Allergy status to other drugs, medicaments and biological substances; Z88.7 Allergy status to serum and vaccine; Z88.5 Allergy status to narcotic agent; Z91.018 Allergy to other foods; Z79.82 Long term (current) use of aspirin; Z79.4 Long term (current) use of insulin; Z79.899 Other long term (current) drug therapy; Z72.0 Tobacco use; Z95.1 Presence of aortocoronary bypass graft; Z86.73 Personal history of transient ischemic attack (TIA), and cerebral infarction without residual deficits; W22.8XXA Striking against or struck by other objects, initial encounter
CPT/HCPCS: 36415; 70450; 80053; 83735; 84484; 85025; 93005; 93225; 93226; 99284; J7030; 93010

== ENCOUNTER 2023-10-09 06:46 | Day surgery (SDC) | payer MEDICARE, MEDICAID ==
[~2023-10-09 06:46] MED LIST: Sodium Chloride 0.9% 10 ML Syringe FLUSH PRN; Sodium Chloride 0.9% 10 ML Syringe FLUSH SCH
[2023-10-09] MEDS ORDERED: HYDROmorphone 0.5 MG/0.5 ML Syringe IVPUSH PRN (07:25)
[2023-10-09] MEDS ORDERED: fentaNYL 100 MCG/2 ML SDV IVPUSH PRN (07:25)
[2023-10-09] MEDS ORDERED: Ondansetron 4 MG/2 ML SDV IVPUSH PRN (07:25)
[2023-10-09] MEDS: Lactated Ringers 1,000 ML IV SCH (07:30)
[2023-10-09] MEDS ORDERED: Propofol 200 MG/20 ML SDV ONE ×3 (07:30)
== END 2023-10-09 10:08 | disposition home or self-care (01) ==
LOC: JD.SDS 06:46
PROVIDERS: ATTEND Surgery
DX: Z12.11 Encounter for screening for malignant neoplasm of colon (principal); D12.4 Benign neoplasm of descending colon; K21.00 Gastro-esophageal reflux disease with esophagitis, without bleeding; K31.89 Other diseases of stomach and duodenum; G47.33 Obstructive sleep apnea (adult) (pediatric); E11.42 Type 2 diabetes mellitus with diabetic polyneuropathy; J44.9 Chronic obstructive pulmonary disease, unspecified; I11.0 Hypertensive heart disease with heart failure; I50.32 Chronic diastolic (congestive) heart failure; E78.2 Mixed hyperlipidemia; I25.10 Atherosclerotic heart disease of native coronary artery without angina pectoris; Z95.1 Presence of aortocoronary bypass graft; F17.210 Nicotine dependence, cigarettes, uncomplicated; Z79.890 Hormone replacement therapy; Z79.84 Long term (current) use of oral hypoglycemic drugs; Z79.899 Other long term (current) drug therapy; Z86.010 Personal history of colon polyps
CPT/HCPCS: 00813; 82947; J2704; J3490; J7120